=== PATIENT | female | born 1980 | race African-American/Black ===

== ENCOUNTER 2017-11-10 12:23 | Emergency (ER) | payer OTHER ==
[2017-11-10 12:25] VITALS: BP 155/86; PULSE 91; RESP 16; TEMP 98.2; O2SAT 99
[2017-11-10] MEDS ORDERED: BACL10TA PO (13:33)
[2017-11-10] MEDS ORDERED: DICL75TA PO (13:33)
--- NOTE | 2017-11-10 13:37 | PD ---
HPI Chief Complaint: Back/ Neck Pain or Injury Time Seen by Provider: 13:25 Travel History International Travel<30 days: No Contact w/Intl Traveler<30days: No Traveled to known affect area: No History of Present Illness HPI 37 year old female presents for evaluation of lower back pain. She reports that this morning she was lifting a heavy patient. Since then she has had lower back pain. She describes it as a stiffness across her lower back which is constant, worse with movement. Denies any radicular symptoms, weakness in the lower extremities, bowel or bladder incontinence, saddle anesthesia, abdominal pain. Denies any history of back injury or back surgery in the past. She has no other complaints at this time. [facility] Past Medical History Diminished Hearing: No Headaches: Yes : 2 Para: 2 Tubal Ligation: Yes Social History Alcohol Use: No Tobacco Use: No (never) Substance Use: No Allergies-Medications (Allergen,Severity, Reaction): Coded Allergies: propoxyphene (Unverified Allergy, Intermediate, Hives, 11/10/17) Reported Meds & Prescriptions Reported Meds & Active Scripts Active Diclofenac Sodium DR (Diclofenac Sodium) 75 Mg Tabdr 75 Mg PO BID 7 Days Baclofen 10 Mg Tab 10 Mg PO Q8HR 7 Days Review of Systems Except as stated in HPI: all other systems reviewed are Neg Physical Exam Narrative GENERAL: Well-developed well-nourished female in no acute distress SKIN: Warm and dry. HEAD: Atraumatic. Normocephalic. EYES: Pupils equal and round. No scleral icterus. No injection or drainage. ENT: No nasal bleeding or discharge. Mucous membranes pink and moist. NECK: Trachea midline. No JVD. CARDIOVASCULAR: Regular rate and rhythm. No murmur appreciated. RESPIRATORY: No accessory muscle use. Clear to auscultation. Breath sounds equal bilaterally. MUSCULOSKELETAL: No obvious deformities. There is no reproducible tenderness to palpation along the thoracic or lumbar midline spine or paravertebral musculature. 5 out of 5 muscle strength in the lower extremities bilaterally. NEUROLOGICAL: Awake and alert. No obvious cranial nerve deficits. Motor grossly within normal limits. Data Data Last Documented VS Vital Signs Date Time Temp Pulse Resp B/P (MAP) Pulse Ox O2 Delivery O2 Flow Rate FiO2 11/10/17 12:25 98.2 91 16 155/86 (109) 99 Orders Orders Ed Discharge Order (11/10/17 13:32) Ketorolac Inj (Toradol Inj) (11/10/17 13:45) Orphenadrine Inj (Norflex Inj) (11/10/17 13:45) [facility] Medical Decision Making Medical Screen Exam Complete: Yes Emergency Medical Condition: Yes Medical Record Reviewed: Yes Differential Diagnosis Lumbar strain, spasm, spinal stenosis, spondylosis Narrative Course Physical examination and history are consistent with lumbar strain. The patient be treated with NSAIDs, muscle relaxants. Recommended light duty at work until cleared by primary care physician. Diagnosis Primary Impression: Lumbar strain Additional Instructions: Medication as needed. Take diclofenac with meals. Do not drive or drink alcohol when taking baclofen. Avoid strenuous activity, heavy lifting. Follow- up in one to 2 weeks with primary care physician. Return for any emergent medical conditions. Med/Other Pt SpecificInfo: Prescription(s) given Scripts Diclofenac Sodium DR (Diclofenac Sodium DR) 75 Mg Tabdr 75 MG PO BID for 7 Days, #14 TAB 0 Refills Prov: Tomer Granados MD 11/10/17 Baclofen (Baclofen) 10 Mg Tab 10 MG PO Q8HR for 7 Days, TAB 0 Refills Prov: Tomer Granados MD 11/10/17 Disposition: 01 DISCHARGE HOME Condition: Stable Yogesh Sweeney Nov 10, 2017 13:37
[2017-11-10] MEDS ORDERED: KETOROLAC TROMETHAMINE 60 MG/2 ML (IM) VIAL IM ONE (13:45)
[2017-11-10] MEDS ORDERED: ORPHENADRINE INJ 60 MG/2 ML AMP IM ONE (13:45)
== END 2017-11-10 14:34 | disposition home or self-care (01) ==
LOC: NEPK 12:23
DX: S39.012A Strain of muscle, fascia and tendon of lower back, initial encounter (principal); X50.0XXA Overexertion from strenuous movement or load, initial encounter; Y93.F2 Activity, caregiving, lifting; Y99.0 Civilian activity done for income or pay
CPT/HCPCS: 96372; 99283; J1885; J2360